=== PATIENT | male | born 1980 | race Caucasian/White ===

== ENCOUNTER → 2017-01-17 | Outpatient (CLI) | payer OTHER ==
--- NOTE | 2017-01-17 12:55 | EST ---
DATE OF SERVICE: 01/17/2017 AGE: 36Y SEX: M HT: 72" WT: 155 lbs. Protocol Bandar: X Other: Stress Stage: 5 Dur. of Exercise: 13:45 *Heart Rate Blood Pressure *Rest: 72 Rest: 124/84 * *Max. Achieved: 161 Maximum BP: 198/90 85% PMHR: 152 100% PMHR: 185 *METS: 14.3 INDICATIONS: Chest pain, hypertension. MEDICATIONS: Hyzaar, vitamins. STRESS DATA: Pretesting physical examination showed a heart rate of 72, pressure is 124/84 mmHg. Baseline EKG showed sinus mechanism. The patient exercised on the treadmill according to Bandar protocol for a total of 13 minutes and achieved 14 of METs with max heart rate was 161, which is about 87% of maximum predicted heart rate. Maximum blood pressure was 198/90 mmHg. Clinically, the patient did not have any symptoms of chest pain or discomfort during the testing or in the recovery time. The EKG did not show any significant ST or T-wave abnormalities consistent with ischemia. CONCLUSION: 1. Excellent exercise capacity. 2. Normal EKG in response to exercise.
== END | disposition home or self-care (01) ==
LOC: RADNMMAIN 11:19
PROVIDERS: ATTEND Family Medicine
DX: I10 Essential (primary) hypertension (principal); R07.9 Chest pain, unspecified; F17.200 Nicotine dependence, unspecified, uncomplicated
CPT/HCPCS: 93017

== ENCOUNTER 2018-01-12 00:36 | Emergency (ER) | payer OTHER ==
[2018-01-12 00:44] VITALS: BP 125/80; PULSE 82; RESP 18; TEMP 97.7
[2018-01-12] MEDS ORDERED: CEPHALEXIN 500MG STARTER PACK 4 CAP BTL PO STA (01:17)
--- NOTE | 2018-01-12 01:17 | ED ---
General Adult HPI - General Chief complaint: Extremity Injury, Lower Stated complaint: Insect bite?, swelling and redness Time Seen by Provider: 01/12/18 00:46 Source: patient Mode of arrival: ambulatory Limitations: no limitations - History of Present Illness Initial comments: 37 old male patient presents to the emergency department today for evaluation of redness and swelling to his right ankle. Patient states that he noticed the area had become swollen and painful yesterday. Patient states that he went to work last night and throughout the day today his symptoms have improved. States that this no longer painful but the redness and warmth still remained. Patient denies any injury to the ankle. He denies any fevers or chills. Denies any wounds or drainage. Denies any history of similar symptoms. Patient does reportedly have a remote history of IV drug abuse. Patient denies any recent shortness breath, chest pain, abdominal pain, nausea, vomiting, diarrhea, constipation, back pain, numbness, tingling, dizziness, weakness, hematuria, dysuria, urinary urgency, urinary frequency, headache, visual changes , or any other complaints. - Related Data Home Medications Medication Instructions Recorded Confirmed Ibuprofen [Motrin] 800 mg PO TID PRN 05/01/16 05/01/16 Previous Rx's Medication Instructions Recorded Ciprofloxacin HCl [Cipro] 500 mg PO Q12HR #28 tablet 05/01/16 Hydrocodone/Acetaminophen [[place] 1 - 2 each PO Q4HR PRN #30 tab 05/01/16 5-325] Cephalexin [Keflex] 500 mg PO Q6H #40 cap 01/12/18 Allergies Allergy/AdvReac Type Severity Reaction Status Date / Time No Known Allergies Allergy Verified 01/12/18 00:44 Review of Systems ROS Statement: Those systems with pertinent positive or pertinent negative responses have been documented in the HPI. ROS Other: All systems not noted in ROS Statement are negative. Past Medical History Past Medical History: Hypertension, Thyroid Disorder History of Any Multi-Drug Resistant Organisms: None Reported Past Surgical History: No Surgical Hx Reported Past Psychological History: No Psychological Hx Reported Smoking Status: Current every day smoker Past Alcohol Use History: Daily Past Drug Use History: Marijuana General Exam Limitations: no limitations General appearance: alert, in no apparent distress, other (This is a well- developed, well-nourished adult male patient in no acute distress. Vital signs upon presentation are temperature 97.7F, pulse 82, respirations 18, blood pressure 125/80, pulse ox 99% on room air.) Eye exam: Present: normal appearance, PERRL, EOMI. Absent: scleral icterus, conjunctival injection, periorbital swelling ENT exam: Present: normal exam, normal oropharynx, mucous membranes moist Respiratory exam: Present: normal lung sounds bilaterally. Absent: respiratory distress, wheezes, rales, rhonchi, stridor Cardiovascular Exam: Present: regular rate, normal rhythm, normal heart sounds. Absent: systolic murmur, diastolic murmur, rubs, gallop, clicks Extremities exam: Present: full ROM, normal capillary refill, other (Patient has mild swelling and patch of erythema noted over the medial right ankle. No evidence of wounds or drainage.). Absent: normal inspection, tenderness, pedal edema, joint swelling, calf tenderness Neurological exam: Present: alert, oriented X3, CN II-XII intact Psychiatric exam: Present: normal affect, normal mood Skin exam: Present: warm, dry, intact, normal color. Absent: rash Course Vital Signs 01/12/18 00:40 Temperature 97.7 F Pulse Rate 82 Respiratory 18 Rate Blood Pressure 125/80 O2 Sat by Pulse 99 Oximetry Medical Decision Making - Medical Decision Making 37 year-old male patient presents to the emergency department today for evaluation of erythema and swelling to the right ankle. Physical examination does reveal a patch of erythema, swelling and warmth to the medial aspect of the right ankle. This is consistent with cellulitis. Patient has no fever or chills. Patient is not tachycardic. He will be prescribed Keflex. He is instructed to follow up with his primary care physician for reevaluation 1-2 days. Return parameters discussed in detail. He verbalizes understanding and agrees this plan per Disposition Clinical Impression: Cellulitis of right ankle Disposition: HOME SELF-CARE Condition: Good Instructions: Cellulitis (ED) Additional Instructions: Take medications as directed. Keep foot elevated. Follow-up with your primary care physician for recheck in 1-2 days. Return here immediately for new, worsening, or concerning symptoms. Prescriptions: Cephalexin [Keflex] 500 mg PO Q6H #40 cap Is patient prescribed a controlled substance at d/c from ED?: No Referrals: Sina Victor MD [Primary Care Provider] - 1-2 days Time of Disposition: :17
== END 2018-01-12 01:32 | disposition home or self-care (01) ==
LOC: EC 00:36
DX: L03.115 Cellulitis of right lower limb (principal); F17.200 Nicotine dependence, unspecified, uncomplicated
CPT/HCPCS: 99283

== ENCOUNTER → 2018-11-25 | Outpatient (CLI) | payer OTHER ==
--- NOTE | 2018-11-25 11:50 | US ---
EXAMINATION TYPE: US venous doppler duplex LE RT DATE OF EXAM: 11/25/2018 11:41 AM COMPARISON: NONE CLINICAL HISTORY: I82.409 Acute embolism and thrombosis of unspecifi. Pt states right leg pain/crampi ng SIDE PERFORMED: Right TECHNIQUE: The lower extremity deep venous system is examined utilizing real time linear array sonog rohith with graded compression, doppler sonography and color-flow sonography. VESSELS IMAGED: External Iliac Vein (EIV) Common Femoral Vein Deep Femoral Vein Greater Saphenous Vein * Femoral Vein Popliteal Vein Small Saphenous Vein * Proximal Calf Veins (* superficial vessels) Right Leg: Negative for DVT Results called to Torri at Dr's office at time of exam Grayscale, color doppler, spectral doppler imaging performed of the deep veins of the right lower ext remity. There is normal flow, compressibility, vascular waveforms. IMPRESSION: No ultrasound evidence for acute DVT in the right lower extremity.
== END | disposition home or self-care (01) ==
LOC: RADUSWWP 11:16
PROVIDERS: ATTEND Family Medicine
DX: I82.409 Acute embolism and thrombosis of unspecified deep veins of unspecified lower extremity (principal)

== ENCOUNTER → 2023-01-05 | Outpatient (CLI) | payer MEDICAID ==
[2023-01-05 20:13] LABS: Basophils # (A) 0.11 X 10*3/uL (0.00-0.10); Basophils % (A) 1.2 %; Eosinophils # (A) 0.31 X 10*3/uL (0.04-0.35); Eosinophils % (A) 3.3 %; HCT 49.1 % (39.6-50.0); HGB 16.2 g/dL (13.0-17.0); Immature Grans, Automated 0.3 %; Lymphocytes # (A) 3.39 X 10*3/uL (0.90-5.00); Lymphocytes % (A) 36.6 %; MCH 30.5 pg (27.0-32.0); MCV 92.5 fL (80.0-97.0); Mean Platelet Volume 9.1 fL (9.5-12.2); Monocytes # (A) 0.61 X 10*3/uL (0.20-1.00); Monocytes % (A) 6.6 %; NRBC Per 100 WBC 0 /100 WBCS (0.0-0.0); Neutrophils # (A) 4.82 X 10*3/uL (1.80-7.70); Platelet Count 293 X 10*3/uL (140-440); RBC 5.31 X 10*6/uL (4.40-5.60); RDW 12.4 % (11.5-14.5); WBC 9.27 X 10*3/uL (4.50-10.00)
[2023-01-05 20:33] LABS: African American GFR (CKD) 96.1 (60.0-200.0); Albumin 4.7 g/dL (3.8-4.9); Albumin/Globulin Ratio 1.47 (1.60-3.17); Anion Gap 11.4 mmol/L (10.00-18.00); BUN/Creat Ratio 10.18 Ratio (12.00-20.00); Blood Urea Nitrogen 11.2 mg/dL (9.0-27.0); Carbon Dioxide 28.6 mmol/L (20.0-27.5); Globulin 3.2 g/dL (1.6-3.3); Non-African American GFR(CKD) 82.9 (60.0-200.0); Potassium 4.6 mmol/L (3.5-5.5); Total Bilirubin 0.5 mg/dL (0.30-1.20); Total Protein 7.9 g/dL (6.2-8.2)
== END | disposition home or self-care (01) ==
LOC: LABWHC1 12:52
PROVIDERS: ATTEND Nurse Practitioner Family
DX: B18.2 Chronic viral hepatitis C (principal)
CPT/HCPCS: 36415; 80053; 85025; 87522

== ENCOUNTER 2024-11-20 13:26 | Observation (INO) | payer MEDICAID ==
--- NOTE | 2024-11-20 13:59 | ED ---
General Adult HPI - General Chief complaint: Chest Pain Stated complaint: chest pain, L arm numbness Time Seen by Provider: 11/20/24 13:48 Source: patient Mode of arrival: ambulatory Limitations: no limitations - History of Present Illness Initial comments: Dictation was produced using [employer] dictation software. please excuse any grammatical, word or spelling errors. Chief Complaint: 44-year-old male with no significant past medical history presents with chest pain History of Present Illness: Patient is a 44-year-old male presents emergency department chest pressure. States that the pressure radiates down his left upper extremity. Patient states its associated diaphoresis and nausea. Does have family history of heart attacks. Denies any history of hypertension high cholesterol or diabetes. Complains of a mild ache to his substernal chest The ROS documented in this emergency department record has been reviewed and confirmed by me. Those systems with pertinent positive or negative responses have been documented in the HPI. All other systems are other negative and/or noncontributory. - Related Data Home Medications Medication Instructions Recorded Confirmed Levothyroxine Sodium [Synthroid] 25 mcg PO DAILY 11/20/24 11/20/24 Losartan Potassium 100 mg PO DAILY 11/20/24 11/20/24 [place]-3/Dha/Epa/Fish Oil [Fish Oil 1 cap PO DAILY 11/20/24 11/20/24 1,000 mg Softgel] amLODIPine [Norvasc] 5 mg PO HS 11/20/24 11/20/24 hydroCHLOROthiazide [Hydrodiuril] 25 mg PO DAILY 11/20/24 11/20/24 Allergies Allergy/AdvReac Type Severity Reaction Status Date / Time No Known Allergies Allergy Verified 11/20/24 18:18 Review of Systems ROS Statement: Those systems with pertinent positive or pertinent negative responses have been documented in the HPI. ROS Other: All systems not noted in ROS Statement are negative. Past Medical History Past Medical History: Hypertension, Thyroid Disorder History of Any Multi-Drug Resistant Organisms: None Reported Past Surgical History: No Surgical Hx Reported Past Psychological History: No Psychological Hx Reported Past Alcohol Use History: Daily Past Drug Use History: Marijuana General Exam - General Exam Comments Initial Comments: PHYSICAL EXAM: General Impression: Alert and oriented x3, not in acute distress HEENT: Normocephalic atraumatic, extra-ocular movements intact, pupils equal and reactive to light bilaterally, mucous membranes moist. Cardiovascular: Heart regular rate and rhythm Chest: Able to complete full sentences, no retractions, no tachypnea Abdomen: abdomen soft, non-tender, non-distended, no organomegaly Musculoskeletal: Pulses present and equal in all extremities, no peripheral edema Motor: no focal deficits noted Neurological: CN II-XII grossly intact, no focal motor or sensory deficits noted Skin: Intact with no visualized rashes Psych: Normal affect and mood Limitations: no limitations Course Vital Signs 11/20/24 11/20/24 13:31 18:16 Temperature 98.1 F 99 F Pulse Rate 80 71 Respiratory 22 16 Rate Blood Pressure 150/85 153/84 O2 Sat by Pulse 99 99 Oximetry EKG Findings - EKG Comments: EKG Findings:: My EKG interpretation: Ventricular rate 85, sinus rhythm, VT 145, QRS 85, QTc 412. No VT prolongation, no QTC prolongation, no ST or T-wave changes noted. Overall, this EKG is unremarkable Medical Decision Making - Medical Decision Making Was pt. sent in by a medical professional or institution (, PA, GENERAL ACCOUNTANT, urgent care, hospital, or prison...) When possible be specific @ -No Did you speak to anyone other than the patient for history (EMS, parent, family, police, friend...)? What history was obtained from this source @ -No Did you review nursing and triage notes (agree or disagree)? Why? @ -I reviewed and agree with nursing and triage notes Were old charts reviewed (outside hosp., previous admission, EMS record, old EKG, old radiological studies, urgent care reports/EKG's, prison records)? Report findings @ -No old charts were reviewed Differential Diagnosis (chest pain, altered mental status, abdominal pain women, abdominal pain men, vaginal bleeding, musculoskeletal, weakness, fever, dyspnea, syncope, headache, dizziness, GI bleed, back pain, seizure, CVA, palpatations, mental health)? @ -Differential Chest Pain: Stable Angina, Unstable Angina, STEMI, NSTEMI Aortic Dissection, Pneumothorax, Musculoskeletal, Esophageal Spasm GERD, Cholecystitis, Pancreatitis, Zoster, this is not meant to be an all-inclusive list. EKG interpreted by me (3pts min.). @ -See above X-rays interpreted by me (1pt min.). @ -Chest x-ray nonacute CT interpreted by me (1pt min.). @ -CT angiography shows diffuse groundglass opacities U/S interpreted by me (1pt. min.). @ -None done What testing was considered but not performed or refused? (CT, X-rays, U/S, labs)? Why? @ -None What meds were considered but not given or refused? Why? @ -None Was smoking cessation discussed for >3mins.? @ -No Were there social determinants of health that impacted care today? How? (Homelessness, low income, unemployed, alcoholism, drug addiction, transportation, low edu. Level, literacy, decrease access to med. care, senior care, rehab)? @ -No Was there de-escalation of care discussed even if they declined (Discuss DNR or withdrawal of care, Hospice)? DNR status @ -No What co-morbidities impacted this encounter? (DM, HTN, Smoking, COPD, CAD, Cancer, CVA, ARF, Chemo, Hep., AIDS, mental health diagnosis, sleep apnea, morbid obesity)? @ -Family history of ACS Was patient admitted / discharged? Hospital course, mention meds given and route, prescriptions, significant lab abnormalities, going to OR and other pertinent info. @ -44-year-old male presents to the emergency department with symptoms concerning for acute coronary syndrome. He has family history of early onset coronary artery disease. EKG is unremarkable. Vital signs are stable. Laboratory evaluation obtained. Leukocytosis 25.6. Troponin is negative rest of labs within acceptable limits. Imaging studies suggest pneumonia. Patient given antibiotics and aspirin will be admitted to observation consultation to cardiology. Case discussed with hospitalist for admission Did you discuss the management of the patient with other professionals (professionals i.e. , PA, GENERAL ACCOUNTANT, lab, RT, psych nurse, social work nurse, explosive ordnance disposal manager, teacher, staff air defense officer, case mgr)? Give summary @ -No Was critical care preformed (if so, how long)? @ -No Undiagnosed new problem with uncertain prognosis? @ -No Drug Therapy requiring intensive monitoring for toxicity (Heparin, Nitro, Insulin, Cardizem)? @ -No Were any procedures done? @ -No Diagnosis/symptom? Acute, or Chronic, or Acute on Chronic? Uncomplicated (without systemic symptoms) or Complicated (systemic symptoms)? @ -Chest pain, pneumonia Side effects of treatment? @ -No Exacerbation, Progression, or Severe Exacerbation? @ -No Poses a threat to life or bodily function? How? (Chest pain, [place], [place], pneumonia, PE, COPD, DKA, ARF, appy, cholecystitis, CVA, Diverticulitis, Homicidal, Suicidal, threat to staff... and all critical care pts) @ -yes - Lab Data Result diagrams: 11/20/24 13:38 11/20/24 13:38 Lab Results 11/20/24 11/20/24 11/20/24 Range/Units 13:38 13:38 13:38 WBC 25.60 H (4.50-10.00) 10*3/uL RBC 4.67 (4.40-5.60) 10*6/uL Hgb 15.5 (13.0-17.0) g/dL Hct 41.5 (39.6-50.0) % MCV 88.9 (80.0-97.0) fL MCH 33.2 H (27.0-32.0) pg MCHC 37.3 H (32.0-37.0) g/dL Plt Count 268 (140-440) 10*3/uL MPV 7.7 L (9.5-12.2) fL Immature Gran % (Auto) 0.7 % Neutrophils % 84.5 % Lymphocytes % 8.2 % Monocytes % 6.1 % Eosinophils % 0.0 % Basophils % 0.5 % Immature Gran # 0.17 H (0.00-0.04) 10*3/uL Neutrophils # 21.60 H (1.80-7.70) 10*3/uL Lymphocytes # 2.11 (0.90-5.00) 10*3/uL Monocytes # 1.57 H (0.20-1.00) 10*3/uL Eosinophils # 0.01 L (0.04-0.35) 10*3/uL Basophils # 0.14 H (0.00-0.10) 10*3/uL PT 11.2 (10.0-12.5) sec INR 1.0 (<1.2) APTT 22.3 (22.0-30.0) sec Sodium 135 L (137-145) mmol/L Potassium 4.1 (3.5-5.1) mmol/L Chloride 95 L (98-107) mmol/L Carbon Dioxide 27 (22-30) mmol/L Anion Gap 13 mmol/L BUN 13 (9-20) mg/dL Creatinine 0.98 (0.66-1.25) mg/dL Est GFR (CKD-EPI)AfAm >90 (>60 ml/min/1.73 sqM) Est GFR (CKD-EPI)NonAf >90 (>60 ml/min/1.73 sqM) Glucose 146 H (74-99) mg/dL Calcium 10.0 (8.4-10.2) mg/dL Magnesium 1.7 (1.6-2.3) mg/dL Total Bilirubin 1.1 (0.2-1.3) mg/dL AST 33 (17-59) U/L ALT 38 (4-49) U/L Alkaline Phosphatase 70 (38-126) U/L Troponin I (0.000-0.034) ng/mL Total Protein 8.5 H (6.3-8.2) g/dL Albumin 5.0 (3.5-5.0) g/dL 11/20/24 Range/Units 13:38 WBC (4.50-10.00) 10*3/uL RBC (4.40-5.60) 10*6/uL Hgb (13.0-17.0) g/dL Hct (39.6-50.0) % MCV (80.0-97.0) fL MCH (27.0-32.0) pg MCHC (32.0-37.0) g/dL Plt Count (140-440) 10*3/uL MPV (9.5-12.2) fL Immature Gran % (Auto) % Neutrophils % % Lymphocytes % % Monocytes % % Eosinophils % % Basophils % % Immature Gran # (0.00-0.04) 10*3/uL Neutrophils # (1.80-7.70) 10*3/uL Lymphocytes # (0.90-5.00) 10*3/uL Monocytes # (0.20-1.00) 10*3/uL Eosinophils # (0.04-0.35) 10*3/uL Basophils # (0.00-0.10) 10*3/uL PT (10.0-12.5) sec INR (<1.2) APTT (22.0-30.0) sec Sodium (137-145) mmol/L Potassium (3.5-5.1) mmol/L Chloride (98-107) mmol/L Carbon Dioxide (22-30) mmol/L Anion Gap mmol/L BUN (9-20) mg/dL Creatinine (0.66-1.25) mg/dL Est GFR (CKD-EPI)AfAm (>60 ml/min/1.73 sqM) Est GFR (CKD-EPI)NonAf (>60 ml/min/1.73 sqM) Glucose (74-99) mg/dL Calcium (8.4-10.2) mg/dL Magnesium (1.6-2.3) mg/dL Total Bilirubin (0.2-1.3) mg/dL AST (17-59) U/L ALT (4-49) U/L Alkaline Phosphatase (38-126) U/L Troponin I <0.012 (0.000-0.034) ng/mL Total Protein (6.3-8.2) g/dL Albumin (3.5-5.0) g/dL Disposition Clinical Impression: Chest pain, Pneumonia Disposition: ADMITTED IP TO THIS HOSP Condition: Fair Referrals: Charly Arambula DO [Primary Care Provider] - 1-2 days Decision Time: 18:25
[2024-11-20 14:02] LABS: Basophils # (A) 0.14 10*3/uL (0.00-0.10); Basophils % (A) 0.5 %; Eosinophils # (A) 0.01 10*3/uL (0.04-0.35); HCT 41.5 % (39.6-50.0); HGB 15.5 g/dL (13.0-17.0); Lymphocytes # (A) 2.11 10*3/uL (0.90-5.00); Lymphocytes % (A) 8.2 %; MCH 33.2 pg (27.0-32.0); MCHC 37.3 g/dL (32.0-37.0); MCV 88.9 fL (80.0-97.0); Mean Platelet Volume 7.7 fL (9.5-12.2); Monocytes # (A) 1.57 10*3/uL (0.20-1.00); Monocytes % (A) 6.1 %; Neutrophils % (A) 84.5 %; Platelet Count 268 10*3/uL (140-440); RBC 4.67 10*6/uL (4.40-5.60); RDW 11.8 % (11.5-14.5)
[2024-11-20 14:11] LABS: ALT 38 U/L (4-49); AST 33 U/L (17-59); African American GFR (CKD) >90 (>60 ml/min/1.73 sqM); Alkaline Phosphatase 70 U/L (38-126); Anion Gap 13 mmol/L; Blood Urea Nitrogen 13 mg/dL (9-20); Carbon Dioxide 27 mmol/L (22-30); Chloride 95 mmol/L (98-107); Glucose 146 mg/dL (74-99); Magnesium 1.7 mg/dL (1.6-2.3); Non-African American GFR(CKD) >90 (>60 ml/min/1.73 sqM); Potassium 4.1 mmol/L (3.5-5.1); Sodium 135 mmol/L (137-145); Total Bilirubin 1.1 mg/dL (0.2-1.3); Total Protein 8.5 g/dL (6.3-8.2)
[2024-11-20 14:50] LABS: Partial Thromboplastin Time 22.3 sec (22.0-30.0); Prothrombin Time 11.2 sec (10.0-12.5)
--- NOTE | 2024-11-20 15:31 | XR ---
EXAMINATION TYPE: XR chest 2V DATE OF EXAM: 11/20/2024 3:28 PM COMPARISON: None. CLINICAL INDICATION: Male, 44 years old with history of Chest Pain, TECHNIQUE: XR chest 2V view(s) obtained. FINDINGS: The heart size is normal. The pulmonary vasculature is normal. The lungs are clear. IMPRESSION: 1. No acute pulmonary process. [facility], , 11/20/2024 3:29 PM
[2024-11-20] MEDS: ASPIRIN 81 MG PO STA (17:45)
--- NOTE | 2024-11-20 18:11 | CT ---
EXAMINATION TYPE: CT angio chest DATE OF EXAM: 11/20/2024 5:46 PM COMPARISON: Chest radiograph from same day. CLINICAL INDICATION: Male, 44 years old with history of chest pain, leukocytosis; chest pain TECHNIQUE/CONTRAST: CTA scan of the thorax is performed with IV Contrast, patient injected with 100 mL of Isovue 370, MIP images are created and reviewed these are created on a separate workstation.. CT DLP: 372.6 mGycm, Automated exposure control for dose reduction was used. FINDINGS: Lungs/Pleura: No evidence of focal consolidation, pleural effusion or pneumothorax. Scattered groundg lass opacities are seen throughout the right upper middle and lower lobes. Small fat-containing Bochd sneha hernia on the left. Airway: Large airways are patent. Heart: Size within normal limits. No significant coronary artery calcifications. Vasculature: There is no evidence for a filling defect within the pulmonary vasculature to suggest ac [place] pulmonary embolism. The pulmonary artery is of normal size. Mediastinum: No gross evidence of adenopathy. Musculoskeletal: No acute osseous abnormalities Soft Tissues/lymph nodes: Unremarkable. Lower neck: No significant findings. Upper Abdomen: Diffuse low-attenuation to the liver parenchyma. IMPRESSION: 1. No evidence of pulmonary embolism. 2. Scattered groundglass opacities throughout the right lung correlate for atypical pneumonia. 3. Hepatic steatosis. Follow up recommendations for incidental pulmonary nodules, if there are any, are per [employer] [employer] or [employer]. https://radiopaedia.org/articles/hexcaptppk-adgrdgt-aliadcmer-qoixbp-vgpehuhmbdanofq-1?lang=us [facility], , 11/20/2024 6:09 PM
[2024-11-20] MEDS ORDERED: NITROGLYCERIN SL TABS 0.4 MG TAB SUBLINGUAL PRN (18:19)
[2024-11-20] MEDS: AZITHROMYCIN 500 MG in SODIUM CHLORIDE 0.9% 250 ML IVPB STA ×2 (19:21→19:41)
[2024-11-20] MEDS: cefTRIAXone IN SWFI 1,000 MG/10 ML SYRINGE IVP SCH (19:40)
[2024-11-20] MEDS: cefTRIAXone IN SWFI 1,000 MG/10 ML SYRINGE IVP STA (19:40)
--- NOTE | 2024-11-20 22:42 | P.HPIM ---
History of Present Illness H&P Date: 11/20/24 Chief Complaint: Chest pain Patient is a 44 year old male with past medical history of hypertension, hypothyroidism presented to the ED with chest pressure. The patient reports chest pressure that started this morning at 5am when he woke up along with chills. Pain is radiating to his left arm. He was able to go to work. He also had a headache and took 2 Advil that seemed to help with the headache, but not the chest pain. That is when he called his dad and presented to the ED. He states the pain in chest and arm is intermittent. Denies trauma, increased physical activity, alleviating or relieving factors. He does mention having heart burn lately, hasn't noticed any associations with any particular kind of food. He mentions having similar symptoms before but his symptoms are worse this time. He tried to induce vomiting thinking that might help with his symptoms, b ut wasn't able to vomit. The patient mentions of family history of CAD in his grandmother. He mentions having hypertension and that he was finally able to get it under control recently. He also reports drinking 8-10 beers a day with his last drink being yesterday. Denies any abdominal pain, nausea, vomiting. Denies fever, chills, shortness of breath, cough, palpitations, abdominal pain, nausea, vomiting, hematuria, dysuria, hematochezia, melena, headache, slurred speech, dizziness, lightheadedness, blurred vision, double vision, tremors. ED documentation reviewed. In the ED patient was treated with aspirin 324 mg, azithromycin 500 mg and ceftriaxone 1000 mg. Vitals on admission T 98.1 F, [place] 80 beats per minute, RR 22, BP 150/85, oxygen saturation 98% on room air EKG independently interpreted as sinus rhythm, rate 85 bpm, QTc 412 ms Chest x-ray shows no acute pulmonary process Chest CTA shows no evidence of pulmonary embolism, scattered groundglass opacities throughout the right lung correlate for atypical pneumonia, hepatic steatosis Labs on admission show WBC 25.6, hemoglobin 15.5, platelet count 268, INR 1.0, sodium 135, potassium 4.1, chloride 95, bicarb 27, anion gap 13, creatinine 0.98, magnesium 1.7, total bilirubin 1.1, total protein 8.5 Troponin I <0.012 x 2 Review of systems: Pertinent positives and negatives as discussed in HPI, a complete review of systems was performed and all other systems are negative. Physical examination: Vital signs reviewed General: no distress, appears at stated age Derm: warm, dry, intact Head: atraumatic, normocephalic, symmetric Eyes: EOMI, anicteric sclera Mouth: no lip lesion, mucus membranes moist Cardiovascular: S1 S2 reg, no murmur Lungs: CTA bilateral, no rhonchi, no rales, no accessory muscle use Abdominal: soft, non-tender to palpation Extremities: No cyanosis, clubbing, or pedal edema. Neuro: Alert, Oriented, Gross neurological examination did not reveal any focal deficits. Psych: well appearing, appropriate affect Assessment/Plan: Patient is a 44 year old male with past medical history of hypertension, hypothyroidism presented to the ED with chest pressure. Active: #. Chest pain, ACS r/o Troponin I <0.012 x 2 EKG independently interpreted as sinus rhythm, rate 85 bpm, QTc 412 ms Chest CTA shows no coronary artery calcifications Patient received aspirin 324 mg once in the ED Obtain lipid panel and TSH Continue to trend troponin Continue telemetry monitoring Cardiology consulted #. Atypical pneumonia #. Leukocytosis WBC 25.6 Chest x-ray shows no acute pulmonary process Chest CTA shows no evidence of pulmonary embolism, scattered groundglass opacities throughout the right lung correlate for atypical pneumonia, hepatic steatosis Received azithromycin 500 mg and ceftriaxone 1000 mg once in the ED Continue Azithromycin 500 mg PO for total 3 days and Ceftriaxone 2gm IVPB daily Obtain respiratory panel, sputum culture and blood culture Monitor CBC #. Hepatic steatosis Chest CTA shows no evidence of pulmonary embolism, scattered groundglass opacities throughout the right lung correlate for atypical pneumonia, hepatic steatosis Total bilirubin 1.1, AST 33, ALT 38, ALP 70, total protein 8.5 Daily alcohol use, 8-10 beers a day. Last drink was yesterday Monitor for alcohol withdrawal symptoms Alcohol withdrawal counselling done Chronic: #. Hypertension #. Hypothyroidism #. Hyperlipidemia Continue amlodipine 5 mg p.o. at bedtime, hydrochlorothiazide 25 mg p.o. daily, levothyroxine 25 mcg p.o. daily, losartan 100 mg p.o. daily F: None E: Replete as required N: Heart healthy diet DVT prophylaxis: Lovenox 40 mg SQ daily and SCD GI prophylaxis: Pantoprazole 40 mg p.o. daily The patient is admitted with an anticipated less than 2 midnight stay for evaluation of chest pressure CODE STATUS: Full code Discussed with: Patient Anticipated discharge place: Home Past Medical History Past Medical History: Hypertension, Thyroid Disorder History of Any Multi-Drug Resistant Organisms: None Reported Past Surgical History: No Surgical Hx Reported Past Psychological History: No Psychological Hx Reported Past Alcohol Use History: Daily Past Drug Use History: Marijuana Medications and Allergies Home Medications Medication Instructions Recorded Confirmed Type Levothyroxine Sodium [Synthroid] 25 mcg PO DAILY 11/20/24 11/20/24 History Losartan Potassium 100 mg PO DAILY 11/20/24 11/20/24 History [place]-3/Dha/Epa/Fish Oil [Fish Oil 1 cap PO DAILY 11/20/24 11/20/24 History 1,000 mg Softgel] amLODIPine [Norvasc] 5 mg PO HS 11/20/24 11/20/24 History hydroCHLOROthiazide [Hydrodiuril] 25 mg PO DAILY 11/20/24 11/20/24 History Allergies Allergy/AdvReac Type Severity Reaction Status Date / Time No Known Allergies Allergy Verified 11/20/24 18:18 Physical Exam Vitals: Vital Signs Temp Pulse Resp BP Pulse Ox 11/20/24 18:16 99 F 71 16 153/84 99 11/20/24 13:31 98.1 F 80 22 150/85 99 Intake and Output 11/20/24 11/20/24 11/20/24 06:59 14:59 22:59 Other: Weight 79.379 kg Results CBC & Chem 7: 11/20/24 13:38 11/20/24 13:38 Labs: Abnormal Lab Results - Last 24 Hours (Table) 11/20/24 11/20/24 Range/Units 13:38 13:38 WBC 25.60 H (4.50-10.00) 10*3/uL MCH 33.2 H (27.0-32.0) pg MCHC 37.3 H (32.0-37.0) g/dL MPV 7.7 L (9.5-12.2) fL Immature Gran # 0.17 H (0.00-0.04) 10*3/uL Neutrophils # 21.60 H (1.80-7.70) 10*3/uL Monocytes # 1.57 H (0.20-1.00) 10*3/uL Eosinophils # 0.01 L (0.04-0.35) 10*3/uL Basophils # 0.14 H (0.00-0.10) 10*3/uL Sodium 135 L (137-145) mmol/L Chloride 95 L (98-107) mmol/L Glucose 146 H (74-99) mg/dL Total Protein 8.5 H (6.3-8.2) g/dL
[2024-11-20 23:41] LABS: Influenza A Not Detected (Not Detectd); Influenza B Not Detected (Not Detectd); RSV Not Detected (Not Detectd)
[2024-11-20] MEDS: amLODIPine 5 MG TAB PO SCH (23:47)
[2024-11-21] MEDS: LEVOTHYROXINE 25 MCG TAB PO SCH (06:32)
[2024-11-21] MEDS: ENOXAPARIN 40 MG/0.4 ML SYRINGE SQ SCH (08:19)
[2024-11-21] MEDS: LOSARTAN 50 MG TAB PO SCH (08:20)
[2024-11-21] MEDS: ASPIRIN 325 MG TAB PO SCH (08:20)
[2024-11-21] MEDS: hydroCHLOROthiazide 25 MG TAB PO SCH (08:20)
[2024-11-21] MEDS: PANTOPRAZOLE 40 MG TABLET PO SCH (08:20)
[2024-11-21] MEDS: cefTRIAXone 2 GM in DEXTROSE 5% IN WATER 50 ML IVPB SCH (09:25)
[2024-11-21 10:20] LABS: HCT 41.4 % (39.6-50.0); HGB 14.3 g/dL (13.0-17.0); MCH 31.9 pg (27.0-32.0); MCHC 34.5 g/dL (32.0-37.0); MCV 92.4 FL (80.0-97.0); Mean Platelet Volume 8.2 FL (9.5-12.2); NRBC Per 100 WBC 0 X 10*3/uL (0.00-0.01); Platelet Count 277 X 10*3/uL (140-440); RBC 4.48 X 10*6/uL (4.40-5.60); RDW 12.1 % (11.5-14.5); WBC 12.88 X 10*3/uL (4.50-10.00)
[2024-11-21 10:59] LABS: BUN/Creat Ratio 12.44 Ratio (12.00-20.00); Blood Urea Nitrogen 11.2 mg/dL (9.0-27.0); Calcium 9.4 mg/dL (8.7-10.3); Carbon Dioxide 25.1 mmol/L (21.6-31.8); Chloride 98 mmol/L (96-109); Chol/HDL Ratio 3.61 Ratio; Glucose 127 mg/dL (70-110); LDL Cholesterol,Calculated 94.6 mg/dL (0.0-131.0); Potassium 3.8 mmol/L (3.5-5.5); Sodium 137 mmol/L (135-145)
--- NOTE | 2024-11-21 11:36 | P.CRDCN ---
History of Present Illness History of present illness: HISTORY OF PRESENT ILLNESS: This is a 44-year-old male with a past medical history significant for hypertension, occasional vaping, and hypothyroidism. 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 We have been asked to see the patient in consultation for chest pain. Patient examined at the bedside. Patient presented to the hospital for chief complaint of chest discomfort. Patient states that he woke up from a sleep with chest pain. He states the pain was on the left side of his chest. He is unable to characterize the type of pain he was having but described it as an " annoying pain". He also reports feeling chilled when he woke up that morning. He denies any fever at home. He reports that his grandma underwent a CABG in her 50s over 60s. He reports occasional vaping use. He does report frequent alcohol use. At the time of examination he denies any chest pain or pressure. He denies any shortness of breath. Denies any dizziness or lightheadedness. The patient was found to have pneumonia and was started on IV antibiotics. DIAGNOSTICS: - EKG reveals sinus mechanism with nonspecific ST-T wave changes. - Chest xray negative for acute process -Chest CTA negative for pulmonary embolism. Scattered groundglass opacities throughout the right lung correlate for atypical pneumonia hepatic steatosis. No significant coronary artery calcifications noted. - Current home cardiac medications include amlodipine 5 mg at night, losartan 100 mg daily, hydrochlorothiazide 25 mg daily. - Patient underwent stress testing in 2017 which was negative for ischemia - No previous echocardiogram available in EMR for review REVIEW OF SYSTEMS: At the time of my exam: CONSTITUTIONAL: Denies fever or chills. HEENT: Denies blurred vision, vision changes, or eye pain. Denies hemoptysis CARDIOVASCULAR: Denies chest pain. Denies orthopnea. Denies PND. Denies palpitations RESPIRATORY: Denies shortness of breath. GASTROINTESTINAL: Denies abdominal pain. Denies nausea or vomiting. HEMATOLOGIC: Denies bleeding disorders. GENITOURINARY: Denies any blood in urine. SKIN: Denies pruitis. Denies rash. PHYSICAL EXAM: VITAL SIGNS: Reviewed. GENERAL: Well-developed in no acute distress. HEENT: Head is normocephalic. Pupils are equal, round. Sclerae anicteric. Mucous membranes of the mouth are moist. Neck supple. No JVD or thyromegaly LUNGS: Respirations even and unlabored. Lungs essentially clear to auscultation bilaterally. HEART: Regular rate and rhythm. S1 and S2 heard. ABDOMEN: Soft. Nondistended. Nontender. EXTREMITIES: Normal range of motion. No clubbing or cyanosis. Peripheral pulses intact. No lower extremity edema NEUROLOGIC: Awake and alert. Oriented x 3. ASSESSMENT: Chest pain, troponin negative x 3 with no significant coronary artery calcifications noted on CTA Hypertension Leukocytosis Atypical pneumonia Daily alcohol use, 8-10 beers daily Nicotine dependence, patient reports occasional vaping PLAN: An acute coronary event has been ruled out Obtain 2D echo to assess cardiac structure and function Resume home cardiac medications Abstinence from alcohol recommended. Vaping cessation recommended. Add aspirin 81 mg daily Recommend eventual stress testing. Most likely to be performed on an outpatient basis once patient's acute issues have resolved Further recommendations pending patient course Nurse practitioner note has been reviewed by physician. Signing provider agrees with the documented findings, assessment, and plan of care documented by MARKETING OUTREACH COORDINATOR as a scribe. Past Medical History Past Medical History: Hypertension, Thyroid Disorder History of Any Multi-Drug Resistant Organisms: None Reported Past Surgical History: No Surgical Hx Reported Past Psychological History: No Psychological Hx Reported Past Alcohol Use History: Daily Past Drug Use History: Marijuana Medications and Allergies Home Medications Medication Instructions Recorded Confirmed Type Levothyroxine Sodium [Synthroid] 25 mcg PO DAILY 11/20/24 11/20/24 History Losartan Potassium 100 mg PO DAILY 11/20/24 11/20/24 History [place]-3/Dha/Epa/Fish Oil [Fish Oil 1 cap PO DAILY 11/20/24 11/20/24 History 1,000 mg Softgel] amLODIPine [Norvasc] 5 mg PO HS 11/20/24 11/20/24 History hydroCHLOROthiazide [Hydrodiuril] 25 mg PO DAILY 11/20/24 11/20/24 History Allergies Allergy/AdvReac Type Severity Reaction Status Date / Time No Known Allergies Allergy Verified 11/20/24 18:18 Physical Exam Vitals: Vital Signs Temp Pulse Resp BP Pulse Ox 11/21/24 08:00 98.2 F 73 18 116/86 97 11/21/24 07:00 80 18 123/93 97 11/21/24 06:29 88 18 98/61 95 11/21/24 04:17 72 16 98/57 11/20/24 23:45 75 18 120/86 99 11/20/24 21:20 64 16 153/103 100 11/20/24 20:23 86 18 148/90 98 11/20/24 18:16 99 F 71 16 153/84 99 11/20/24 13:31 98.1 F 80 22 150/85 99 Results 11/21/24 05:25 11/21/24 05:25 Cardiac Enzymes 11/20/24 11/20/24 11/20/24 Range/Units 13:38 13:38 18:50 AST 33 (17-59) U/L Troponin I <0.012 <0.012 (0.000-0.034) ng/mL 11/20/24 Range/Units 22:16 AST (17-59) U/L Troponin I <0.012 (0.000-0.034) ng/mL Coagulation 11/20/24 Range/Units 13:38 PT 11.2 (10.0-12.5) sec APTT 22.3 (22.0-30.0) sec CBC 11/20/24 Range/Units 13:38 WBC 25.60 H (4.50-10.00) 10*3/uL RBC 4.67 (4.40-5.60) 10*6/uL Hgb 15.5 (13.0-17.0) g/dL Hct 41.5 (39.6-50.0) % Plt Count 268 (140-440) 10*3/uL Comprehensive Metabolic Panel 11/20/24 Range/Units 13:38 Sodium 135 L (137-145) mmol/L Potassium 4.1 (3.5-5.1) mmol/L Chloride 95 L (98-107) mmol/L Carbon Dioxide 27 (22-30) mmol/L BUN 13 (9-20) mg/dL Creatinine 0.98 (0.66-1.25) mg/dL Glucose 146 H (74-99) mg/dL Calcium 10.0 (8.4-10.2) mg/dL AST 33 (17-59) U/L ALT 38 (4-49) U/L Alkaline Phosphatase 70 (38-126) U/L Total Protein 8.5 H (6.3-8.2) g/dL Albumin 5.0 (3.5-5.0) g/dL Current Medications Generic Name Dose Route Start Last Admin Trade Name Hannah PRN Reason Stop Dose Admin Amlodipine Besylate 5 mg 11/20/24 23:00 11/20/24 23:47 Amlodipine 5 Mg Tab PO 5 mg HS NAYE Administration Aspirin 325 mg 11/21/24 09:00 11/21/24 08:20 Aspirin 325 Mg Tab PO 325 mg DAILY NAYE Administration Enoxaparin Sodium 40 mg 11/21/24 09:00 11/21/24 08:19 Enoxaparin 40 Mg/0.4 Ml Syringe SQ 40 mg DAILY NAYE Administration Hydrochlorothiazide 25 mg 11/21/24 09:00 11/21/24 08:20 Hydrochlorothiazide 25 Mg Tab PO 25 mg DAILY NAYE Administration Azithromycin 500 mg/ Sodium 250 mls @ 250 mls/hr 11/21/24 18:00 Chloride IVPB 11/22/24 18:59 DAILY@1800 [facility] Protocol Ceftriaxone Sodium 2 gm/ 50 mls @ 100 mls/hr 11/21/24 09:00 Dextrose/Water IVPB Q24HR [facility] Protocol Levothyroxine Sodium 25 mcg 11/21/24 06:30 11/21/24 06:32 Levothyroxine 25 Mcg Tab PO 25 mcg DAILY@0630 NAYE Administration Losartan Potassium 100 mg 11/21/24 09:00 11/21/24 08:20 Losartan 50 Mg Tab PO 100 mg DAILY NAYE Administration Nitroglycerin 0.4 mg 11/20/24 18:19 Nitroglycerin Sl Tabs 0.4 Mg Tab SUBLINGUAL Q5M PRN Chest Pain Pantoprazole Sodium 40 mg 11/21/24 07:30 11/21/24 08:20 Pantoprazole 40 Mg Tablet PO 40 mg [id number] NAYE Administration 11/20/24 13:38 11/20/24 13:38
--- NOTE | 2024-11-21 13:19 | P.PN ---
Subjective Progress Note Date: 11/21/24 Hospital Course: Patient is a 44 year old male with past medical history of hypertension, hypot hyroidism presented to the ED with chest pressure. The patient reports chest pressure that started this morning at 5am when he woke up along with chills. Pain is radiating to his left arm. He was able to go to work. He also had a headache and took 2 Advil that seemed to help with the headache, but not the chest pain. That is when he called his dad and presented to the ED. He states the pain in chest and arm is intermittent. Denies trauma, increased physical activity, alleviating or relieving factors. He does mention having heart burn lately, hasn't noticed any associations with any particular kind of food. He mentions having similar symptoms before but his symptoms are worse this time. He tried to induce vomiting thinking that might help with his symptoms, but wasn't able to vomit. The patient mentions of family history of CAD in his grandmother. He mentions having hypertension and that he was finally able to get it under control recently. He also reports drinking 8-10 beers a day with his last drink being yesterday. Denies any abdominal pain, nausea, vomiting. Denies fever, chills, shortness of breath, cough, palpitations, abdominal pain, nausea, vomiting, hematuria, dysuria, hematochezia, melena, headache, slurred speech, dizziness, lightheadedness, blurred vision, double vision, tremors. ED documentation reviewed. In the ED patient was treated with aspirin 324 mg, azithromycin 500 mg and ceftriaxone 1000 mg. Vitals on admission T 98.1 F, [place] 80 beats per minute, RR 22, BP 150/85, oxygen saturation 98% on room air EKG independently interpreted as sinus rhythm, rate 85 bpm, QTc 412 ms Chest x-ray shows no acute pulmonary process Chest CTA shows no evidence of pulmonary embolism, scattered groundglass opacities throughout the right lung correlate for atypical pneumonia, hepatic steatosis Labs on admission show WBC 25.6, hemoglobin 15.5, platelet count 268, INR 1.0, sodium 135, potassium 4.1, chloride 95, bicarb 27, anion gap 13, creatinine 0.98, magnesium 1.7, total bilirubin 1.1, total protein 8.5 Troponin I <0.012 x 2 He was admitted for further evaluation and management of chest pain, cardiology consulted. He was started on azithromycin for atypical pneumonia on 11/21. Alcohol and vaping cessation discussed during this hospitalization. TTE ordered Will need to follow-up with PCP for recheck TSH and 6 weeks. Subjective: Seen and examined at bedside in the ER, feels back to normal Pertinent positives and negatives as discussed above, a complete review of systems was performed and all other systems are negative. Vitals Signs Reviewed. General: [nontoxic], [no distress], [appears at stated age] Derm: [warm], [dry] Head: [atraumatic], [normocephalic], [symmetric] Eyes: [EOMI], [no lid lag], [anicteric sclera] Mouth: [no lip lesion], [mucus membranes moist] Cardiovascular: [S1S2 reg], [no murmur] Lungs: [CTA bilateral], [no rhonchi, no rales] , [no accessory muscle use] Abdominal: [soft], [ nontender to palpation], [no guarding], [no appreciable organomegaly] Ext: [no gross muscle atrophy], [no edema], [no contractures] Neuro: [ CN II-XI grossly intact], [no focal neuro deficits] Psych: [Alert], [oriented], [appropriate affect] Data Reviewed Today: Pertinent Labs: WBC 12.8, hemoglobin normal platelet count normal, sodium, potassium, bicarb normal, creatinine normal, LDL 39, TSH 7.07, T41.2 Assessment and Plan: Chest pain, ACS r/o Allergy consulted, appreciate recommendations, TTE ordered and pending Aspirin 81 mg daily, plan for eventual stress testing, could be done as outpatient after pneumonia resolution Atypical pneumonia Leukocytosis WBC 25.6 Chest x-ray shows no acute pulmonary process Chest CTA shows no evidence of pulmonary embolism, scattered groundglass opacities throughout the right lung correlate for atypical pneumonia, hepatic steatosis Received azithromycin 500 mg and ceftriaxone 1000 mg once in the ED Continue Azithromycin 500 mg PO for total 3 days and Ceftriaxone 2gm IVPB daily Cepheid negative Monitor CBC, improved Hepatic steatosis Chest CTA shows no evidence of pulmonary embolism, scattered groundglass opacities throughout the right lung correlate for atypical pneumonia, hepatic steatosis Total bilirubin 1.1, AST 33, ALT 38, ALP 70, total protein 8.5 Daily alcohol use, 8-10 beers a day. Last drink was yesterday Monitor for alcohol withdrawal symptoms Alcohol withdrawal counselling done Tobacco dependence -Counseled on smoking cessation Chronic: Hypertension Hypothyroidism Hyperlipidemia Continue amlodipine 5 mg p.o. at bedtime, hydrochlorothiazide 25 mg p.o. daily, levothyroxine 25 mcg p.o. daily, losartan 100 mg p.o. daily Recheck TSH and T4 in 6 weeks with PCP CODE STATUS: Full code Discussed with: Patient Anticipated discharge place: Home 11/22 Objective - Vital Signs Vital signs: Vital Signs Temp 98.2 F 11/21/24 12:44 Pulse 61 11/21/24 12:44 Resp 14 11/21/24 12:44 BP 125/83 11/21/24 12:44 Pulse Ox 98 11/21/24 12:44 FiO2 Intake & Output 11/20/24 11/21/24 11/21/24 18:59 06:59 18:59 Weight 79.379 kg - Labs CBC & Chem 7: 11/21/24 05:25 11/21/24 05:25 Labs: Abnormal Lab Results - Last 24 Hours (Table) 11/20/24 11/20/24 11/21/24 Range/Units 13:38 13:38 05:25 WBC 25.60 H (4.50-10.00) 10*3/uL MCH 33.2 H (27.0-32.0) pg MCHC 37.3 H (32.0-37.0) g/dL MPV 7.7 L (9.5-12.2) fL Immature Gran # 0.17 H (0.00-0.04) 10*3/uL Neutrophils # 21.60 H (1.80-7.70) 10*3/uL Monocytes # 1.57 H (0.20-1.00) 10*3/uL Eosinophils # 0.01 L (0.04-0.35) 10*3/uL Basophils # 0.14 H (0.00-0.10) 10*3/uL Sodium 135 L (137-145) mmol/L Chloride 95 L (98-107) mmol/L Anion Gap 13.90 H (4.00-12.00) mmol/L Glucose 146 H 127 H (74-99) mg/dL Total Protein 8.5 H (6.3-8.2) g/dL Triglycerides 196.00 H (0.00-149.00) mg/dL TSH 7.070 H (0.350-5.500) UIU/ML 11/21/24 Range/Units 05:25 WBC 12.88 H (4.50-10.00) 10*3/uL MCH (27.0-32.0) pg MCHC (32.0-37.0) g/dL MPV 8.2 L (9.5-12.2) fL Immature Gran # (0.00-0.04) 10*3/uL Neutrophils # (1.80-7.70) 10*3/uL Monocytes # (0.20-1.00) 10*3/uL Eosinophils # (0.04-0.35) 10*3/uL Basophils # (0.00-0.10) 10*3/uL Sodium (137-145) mmol/L Chloride (98-107) mmol/L Anion Gap (4.00-12.00) mmol/L Glucose (74-99) mg/dL Total Protein (6.3-8.2) g/dL Triglycerides (0.00-149.00) mg/dL TSH (0.350-5.500) UIU/ML
--- NOTE | 2024-11-21 19:22 | CA ---
Transthoracic Echo Report Name: Frank Lechuga Age: 44 Gender: M : 1980 Exam Date: 11/21/2024 13:12 Exam Location: [facility] Ht (in): 72 Wt (lb): 175 Ordering Physician: Jodi Cook Attending/Referring Phys: [id number], Joey [employer] Door Service Technician Leni Cuello RDCS Procedure CPT: Indications: LV function, CP Cardiac Hx: Technical Quality: Good Contrast 1: Total Dose (mL): Contrast 2: Total Dose (mL): MEASUREMENTS (Male / Female) Normal Values 2D ECHO LV Diastolic Diameter PLAX 5.1 cm 4.2 - 5.9 / 3.9 - 5.3 cm LV Systolic Diameter PLAX 3.3 cm IVS Diastolic Thickness 0.7 cm 0.6 - 1.0 / 0.6 - 0.9 cm LVPW Diastolic Thickness 0.8 cm 0.6 - 1.0 / 0.6 - 0.9 cm LV Relative Wall Thickness 0.3 RV Internal Dim ED PLAX 3.1 cm LA Systolic Diameter LX 3.0 cm 3.0 - 4.0 / 2.7 - 3.8 cm LV Diastolic Volume MOD 4C 105.6 cm??? LV Systolic Volume MOD 4C 48.0 cm??? LV Ejection Fraction MOD 4C 54.6 % LV Cardiac Index MOD 4C 1691.5 cm???/min???m??? LV Diastolic Length 4C 8.8 cm LV Systolic Length 4C 7.1 cm LV Diastolic Volume MOD 2C 95.5 cm??? LV Systolic Volume MOD 2C 45.5 cm??? LV Ejection Fraction MOD 2C 52.4 % LV Cardiac Index MOD 2C 1468.8 cm???/min???m??? LV Diastolic Length 2C 9.4 cm LV Systolic Length 2C 7.6 cm M-MODE Aortic Root Diameter MM 3.3 cm DOPPLER AV Peak Velocity 134.6 cm/s AV Peak Gradient 7.2 mmHg Mitral E Point Velocity 84.0 cm/s Mitral A Point Velocity 58.2 cm/s Mitral E to A Ratio 1.4 MV Deceleration Time 207.9 ms MV E' Velocity 11.8 cm/s Mitral E to MV E' Ratio 7.1 TR Peak Velocity 173.9 cm/s TR Peak Gradient 12.1 mmHg Right Ventricular Systolic Press 22.2 mmHg FINDINGS Left Ventricle Left ventricular ejection fraction is estimated at 55-60 %. Left ventricular cavity size normal. Left ventricular wall thickness normal. Normal left ventricular wall motion. Right Ventricle Normal right ventricular size. Right ventricular systolic pressure within normal limits. Right Atrium Normal right atrial size. No right atrial thrombus or mass seen. Left Atrium Normal left atrial size. No left atrial thrombus or mass present. Mitral Valve Structurally normal mitral valve. No evidence for mitral valve prolapse. No mitral stenosis. Trace to mild mitral regurgitation. Aortic Valve Trileaflet aortic valve. No aortic valve stenosis or regurgitation. Tricuspid Valve Tricuspid valve not well visualized. Trace to mild tricuspid regurgitation. Pulmonic Valve Structurally normal pulmonic valve. Mild pulmonic regurgitation. Pericardium No pericardial effusion. Aorta Normal size aortic root and proximal ascending aorta. CONCLUSIONS Normal biventricular systolic function No significant valvular abnormalities noted No pericardial effusion Previewed by: Dr. Dagoberto Turner MD (Electronically Signed) Final Date: 21 November 2024 19:21
[2024-11-21] MEDS: AZITHROMYCIN 500 MG in SODIUM CHLORIDE 0.9% 250 ML IVPB SCH (20:17)
[2024-11-22 07:36] VITALS: BP 130/77; PULSE 65; RESP 15; TEMP 98
[2024-11-22 09:34] LABS: HCT 43.9 % (39.6-50.0); HGB 14.9 g/dL (13.0-17.0); MCH 31.7 pg (27.0-32.0); MCHC 33.9 g/dL (32.0-37.0); MCV 93.4 FL (80.0-97.0); Mean Platelet Volume 8.1 FL (9.5-12.2); NRBC Per 100 WBC 0 X 10*3/uL (0.00-0.01); Platelet Count 269 X 10*3/uL (140-440); RDW 11.9 % (11.5-14.5); WBC 11.03 X 10*3/uL (4.50-10.00)
[2024-11-22] MEDS: ASPIRIN 81 MG PO SCH (09:45)
--- NOTE | 2024-11-22 12:46 | P.DS ---
Providers Date of admission: 11/20/24 18:21 Attending physician: Kiera Dickson MD Consults: 11/20/24 18:19 Consult Physician Urgent Consulting Provider: Dagoberto Turner Consult Reason/Comments: chest pain Do you want consulting provider notified?: Yes Primary care physician[facility] [place] Hospital Course: Discharge Diagnosis: Chest pain, ACS ruled out Atypical pneumonia Leukocytosis Hepatic steatosis Tobacco dependence Hypertension Hypothyroidism Hyperlipidemia Hospital Course: Patient is a 44 year old male with past medical history of hypertension, hypothyroidism presented to the ED with chest pressure. The patient reports chest pressure that started this morning at 5am when he woke up along with chills. Pain is radiating to his left arm. He was able to go to work. He also had a headache and took 2 Advil that seemed to help with the headache, but not the chest pain. That is when he called his dad and presented to the ED. He states the pain in chest and arm is intermittent. Denies trauma, increased physical activity, alleviating or relieving factors. He does mention having heart burn lately, hasn't noticed any associations with any particular kind of food. He mentions having similar symptoms before but his symptoms are worse this time. He tried to induce vomiting thinking that might help with his symptoms, but wasn't able to vomit. The patient mentions of family history of CAD in his grandmother. He mentions having hypertension and that he was finally able to get it under control recently. He also reports drinking 8-10 beers a day with his last drink being yesterday. Denies any abdominal pain, nausea, vomiting. Denies fever, chills, shortness of breath, cough, palpitations, abdominal pain, nausea, vomiting, hematuria, dysuria, hematochezia, melena, headache, slurred speech, dizziness, lightheadedness, blurred vision, double vision, tremors. ED documentation reviewed. In the ED patient was treated with aspirin 324 mg, azithromycin 500 mg and ceftriaxone 1000 mg. Patient received 1 dose of azithromycin and 2 doses of ceftriaxone during his hospitalization, will be discharged on 2 more days of azithromycin and 3 days of amoxicillin to complete 5 days course. Cardiology recommended to start aspirin and complete TTE that came back negative, cleared for discharge with follow-up with PCP and chemical engineering technician. Patient seen and examined at bedside.[] Vital signs reviewed and stable. General: [nontoxic], [no distress], [appears at stated age] Derm: [warm], [dry] Head: [atraumatic], [normocephalic], [symmetric] Eyes: [EOMI], [no lid lag], [anicteric sclera] Mouth: [no lip lesion], [mucus membranes moist] Cardiovascular: [S1S2 reg], [no murmur] Lungs: [CTA bilateral], [no rhonchi, no rales] , [no accessory muscle use] Abdominal: [soft], [ nontender to palpation], [no guarding], [no appreciable organomegaly] Ext: [no gross muscle atrophy], [no edema], [no contractures] Neuro: [ CN II-XI grossly intact], [no focal neuro deficits] Psych: [Alert], [oriented], [appropriate affect] A total of 40 minutes of time were spent preparing this complex discharge summary. Patient was discharged on11/22/24. Patient Condition at Discharge: Fair Plan - Discharge Summary New Discharge Prescriptions: New Aspirin 81 mg PO DAILY #30 tab Amoxicillin 1,000 mg PO Q8H #18 cap Azithromycin [Zithromax] 500 mg PO DAILY 2 Days #1 tab Continue Losartan Potassium 100 mg PO DAILY amLODIPine [Norvasc] 5 mg PO HS Levothyroxine Sodium [Synthroid] 25 mcg PO DAILY Bonita-3/Dha/Epa/Fish Oil [Fish Oil 1,000 mg Softgel] 1 cap PO DAILY hydroCHLOROthiazide [Hydrodiuril] 25 mg PO DAILY Discharge Medication List Levothyroxine Sodium [Synthroid] 25 mcg PO DAILY 11/20/24 [History] Losartan Potassium 100 mg PO DAILY 11/20/24 [History] Bonita-3/Dha/Epa/Fish Oil [Fish Oil 1,000 mg Softgel] 1 cap PO DAILY 11/20/24 [History] amLODIPine [Norvasc] 5 mg PO HS 11/20/24 [History] hydroCHLOROthiazide [Hydrodiuril] 25 mg PO DAILY 11/20/24 [History] Amoxicillin 1,000 mg PO Q8H #18 cap 11/22/24 [Rx] Aspirin 81 mg PO DAILY #30 tab 11/22/24 [Rx] Azithromycin [Zithromax] 500 mg PO DAILY 2 Days #1 tab 11/22/24 [Rx] Follow up Appointment(s)/Referral(s): Charly Arambula DO [Primary Care Provider] - 1-2 days Patient Instructions/Handouts: DASH Eating Plan (DC) Activity/Diet/Wound Care/Special Instructions: Please, follow-up with your primary care physician and chemical engineering technician. Complete your antibiotics Discharge Disposition: HOME SELF-CARE
--- NOTE | 2024-11-22 15:00 | P.PN ---
Subjective Progress Note Date: 11/22/24 This is a 44-year-old male with a past medical history significant for hypertension, occasional vaping, and hypothyroidism. Patient does not follow with a orthopedics nurse. We have been asked to see the patient in consultation for chest pain. Patient examined at the bedside. Patient presented to the hospital for chief complaint of chest discomfort. Patient states that he woke up from a sleep with chest pain. He states the pain was on the left side of his chest. He is unable to characterize the type of pain he was having but described it as an " annoying pain". He also reports feeling chilled when he woke up that morning. He denies any fever at home. He reports that his grandma underwent a CABG in her 50s over 60s. He reports occasional vaping use. He does report frequent alcohol use. At the time of examination he denies any chest pain or pressure. He denies any shortness of breath. Denies any dizziness or lightheadedness. The patient was found to have pneumonia and was started on IV antibiotics. DIAGNOSTICS: - EKG reveals sinus mechanism with nonspecific ST-T wave changes. - Chest xray negative for acute process -Chest CTA negative for pulmonary embolism. Scattered groundglass opacities throughout the right lung correlate for atypical pneumonia hepatic steatosis. No significant coronary artery calcifications noted. - Current home cardiac medications include amlodipine 5 mg at night, losartan 100 mg daily, hydrochlorothiazide 25 mg daily. - Patient underwent stress testing in 2017 which was negative for ischemia - No previous echocardiogram available in EMR for review 11/22/2024 Patient was seen and examined resting comfortably in bed. Echocardiogram with Doppler study showed normal LV systolic function with no segmental wall motion abnormality and no significant valvular abnormalities. Overall he is feeling better. Denies further complaints of chest discomfort. His breathing has been stable and he denies any orthopnea or PND. PHYSICAL EXAM: VITAL SIGNS: Reviewed. GENERAL: Well-developed in no acute distress. HEENT: Head is normocephalic. Pupils are equal, round. Sclerae anicteric. Mucous membranes of the mouth are moist. Neck supple. No JVD or thyromegaly LUNGS: Respirations even and unlabored. Lungs essentially clear to auscultation bilaterally. HEART: Regular rate and rhythm. S1 and S2 heard. ABDOMEN: Soft. Nondistended. Nontender. EXTREMITIES: Normal range of motion. No clubbing or cyanosis. Peripheral pulses intact. No lower extremity edema NEUROLOGIC: Awake and alert. Oriented x 3. ASSESSMENT: Chest pain, troponin negative x 3 with no significant coronary artery calcifications noted on CTA Hypertension Leukocytosis Atypical pneumonia Daily alcohol use, 8-10 beers daily Nicotine dependence, patient reports occasional vaping PLAN: An acute coronary event has been ruled out Abstinence from alcohol recommended. Vaping cessation recommended. From our perspective patient may be discharged home. He will follow-up in the office with Dr. Turner and be scheduled for outpatient stress testing at that time. BLOOD TESTER note has been reviewed, I agree with a documented findings and plan of care. Patient was seen and examined. Objective - Vital Signs Vital signs: Vital Signs Temp 98.0 F 11/22/24 07:00 Pulse 65 11/22/24 07:00 Resp 15 11/22/24 07:00 BP 130/77 11/22/24 07:00 Pulse Ox 99 11/22/24 07:00 FiO2 Intake & Output 11/21/24 11/22/24 11/22/24 18:59 06:59 18:59 Weight 79.379 kg Other: Voiding Method Toilet Toilet # Voids 1 2 - Labs CBC & Chem 7: 11/21/24 05:25 11/21/24 05:25 Labs: Abnormal Lab Results - Last 24 Hours (Table) 11/21/24 11/21/24 Range/Units 05:25 05:25 WBC 12.88 H (4.50-10.00) X 10*3/uL MPV 8.2 L (9.5-12.2) FL Anion Gap 13.90 H (4.00-12.00) mmol/L Glucose 127 H (70-110) mg/dL Triglycerides 196.00 H (0.00-149.00) mg/dL TSH 7.070 H (0.350-5.500) UIU/ML Microbiology - Last 24 Hours (Table) 11/20/24 22:55 Blood Culture - Preliminary Blood 11/21/24 10:00 Gram Stain - Preliminary Sputum
== END 2024-11-22 15:40 | disposition home or self-care (01) ==
LOC: EC 13:26 → 6NMEDSUR 18:21
PROVIDERS: ADMIT Student in an Organized Health Care Education/Training Program; ATTEND Student in an Organized Health Care Education/Training Program
DX: R07.89 Other chest pain (principal); J18.9 Pneumonia, unspecified organism; E03.9 Hypothyroidism, unspecified; E78.5 Hyperlipidemia, unspecified; F17.200 Nicotine dependence, unspecified, uncomplicated; I10 Essential (primary) hypertension; K76.0 Fatty (change of) liver, not elsewhere classified; Z71.6 Tobacco abuse counseling; Z79.890 Hormone replacement therapy; Z79.899 Other long term (current) drug therapy; Z82.49 Family history of ischemic heart disease and other diseases of the circulatory system
CPT/HCPCS: 96366 ×3; 96365; 96367; 96372; 99285; 36415; 93005 ×2; 93306; 84439; 80061; 80053; 80048; 84443; 83735; 84484; 85025; 85027 ×2; 85610; 85730; 87040; 87070; 87205; 87636; 71046; 71275; G0378 ×3; J0456 ×2; J0696 ×2; J1650; Q9967

== ENCOUNTER → 2025-03-06 | Outpatient (CLI) | payer MEDICAID ==
--- NOTE | 2025-03-06 15:09 | XR ---
EXAMINATION TYPE: XR foot complete RT DATE OF EXAM: 03/06/2025 2:37 PM COMPARISON: None CLINICAL INDICATION: Male, 44 years old with history of [id number] RT FOOT PAIN; YCH, pain TECHNIQUE: 3 views FINDINGS: No acute fracture, subluxation, dislocation. Joint spaces throughout are maintained. IMPRESSION: No acute osseous abnormality seen. [facility], Workstation: [facility], 03/06/2025 3:07 PM
== END | disposition home or self-care (01) ==
LOC: RADXRYALE 14:05
PROVIDERS: ATTEND Physician Assistant Medical
DX: M79.671 Pain in right foot (principal)